=== PATIENT | female | born 1990 | race Caucasian/White ===

== ENCOUNTER 2018-10-26 22:45 | Emergency (ER) | payer OTHER ==
[~2018-10-26] VITALS: Ht 170.2 cm; Wt 59.0 kg
[2018-10-27] MEDS ORDERED: ZOFRAN4 MG PO (06:08)
[2018-10-27] MEDS ORDERED: PEPCID40 MG PO ×2 (06:09→06:10)
== END 2018-10-27 06:38 | disposition home or self-care (01) ==
LOC: ER 22:45
DX: O21.0 Mild hyperemesis gravidarum (principal); Z34.81 Encounter for supervision of other normal pregnancy, first trimester

== ENCOUNTER 2018-12-21 18:07 | Emergency (ER) | payer OTHER ==
[~2018-12-21] VITALS: Ht 167.6 cm; Wt 69.4 kg
[~2018-12-21 18:07] MED LIST: PEPCID40 MG PO; ZOFRAN4 MG PO
== END 2018-12-21 21:10 | disposition home or self-care (01) ==
LOC: ER 18:07
DX: O20.0 Threatened abortion (principal)

== ENCOUNTER 2019-02-24 17:55 | Inpatient (IN) | payer OTHER ==
[~2019-02-24] VITALS: Ht 167.6 cm; Wt 75.3 kg
[2019-02-25] MEDS ORDERED: PRENATABS RX T1 EACH PO (15:20)
== END 2019-02-27 14:19 | disposition home or self-care (01) | DRG 833 ==
LOC: OBS/DEL 17:55 → LDR 02-25 10:42 → OB/GYN 02-27 12:16 → LDR 02-27 13:21
PROVIDERS: ADMIT Obstetrics & Gynecology Obstetrics
PROC: BY4CZZZ Ultrasonography of Second Trimester, Single Fetus (ICD-10-PCS; principal; 2019-02-25)
PROC: 4A1HXCZ Monitoring of Products of Conception, Cardiac Rate, External Approach (ICD-10-PCS; 2019-02-25)
DX: O13.2 Gestational [pregnancy-induced] hypertension without significant proteinuria, second trimester (principal); O09.212 Supervision of pregnancy with history of pre-term labor, second trimester; Z34.82 Encounter for supervision of other normal pregnancy, second trimester

== ENCOUNTER 2019-05-02 13:46 | Inpatient (IN) | payer OTHER ==
[~2019-05-02] VITALS: Ht 167.6 cm; Wt 84.4 kg
[~2019-05-02 13:46] MED LIST changes: +PRENATABS RX T1 EACH PO
[2019-05-02] MEDS ORDERED: ALDOMET250 MG/5 M PO (14:22)
== END 2019-05-04 14:22 | disposition home or self-care (01) | DRG 833 ==
LOC: LDR 13:46
PROVIDERS: ADMIT Obstetrics & Gynecology Obstetrics
PROC: BY4FZZZ Ultrasonography of Third Trimester, Single Fetus (ICD-10-PCS; principal; 2019-05-02)
PROC: 4A1HXCZ Monitoring of Products of Conception, Cardiac Rate, External Approach (ICD-10-PCS; 2019-05-02)
DX: O13.3 Gestational [pregnancy-induced] hypertension without significant proteinuria, third trimester (principal); O26.843 Uterine size-date discrepancy, third trimester

== ENCOUNTER 2019-05-15 10:19 | Inpatient (IN) | payer OTHER ==
[~2019-05-15] VITALS: Ht 167.6 cm; Wt 3.2 kg
[~2019-05-15 10:19] MED LIST changes: +ALDOMET250 MG/5 M PO
== END 2019-05-18 16:56 | disposition home or self-care (01) | DRG 785 ==
LOC: OB/GYN 10:19 → LDR 10:19 → OB/GYN 05-16 16:48
PROVIDERS: ADMIT Obstetrics & Gynecology Obstetrics
PROC: 0UB70ZZ Excision of Bilateral Fallopian Tubes, Open Approach (ICD-10-PCS; 2019-05-15)
PROC: 4A1HXCZ Monitoring of Products of Conception, Cardiac Rate, External Approach (ICD-10-PCS; 2019-05-15)
PROC: 10D00Z1 Extraction of Products of Conception, Low, Open Approach (ICD-10-PCS; principal; 2019-05-15 16:00)
DX: O82 Encounter for cesarean delivery without indication (principal); O34.211 Maternal care for low transverse scar from previous cesarean delivery; Z3A.37 37 weeks gestation of pregnancy; Z37.0 Single live birth; Z30.2 Encounter for sterilization